=== PATIENT | female | born 1930 | race Caucasian/White ===

== ENCOUNTER 2017-01-29 09:36 | Emergency (ER) | payer MEDICARE ==
[2017-01-29 10:10] LABS: #Basophils 0.1 thou/uL (0.0-0.2); #Eosinphils 0.3 thou/uL (0.0-0.7); #Lymphocytes 2.7 thou/uL (1.20-3.40); #Monocytes 0.5 thou/uL (0.11-0.59); #Neutrophils 4.7 thou/uL (1.40-6.50); %Basophils 1.4 % (0.0-1.0); %Eosinophils 3.2 % (0.0-10.0); %Lymphocytes 32.5 % (21.0-51.0); %Monocytes 5.6 % (0.0-10.0); %Neutrophils 57.3 % (42.0-75.0); Hemoglobin 14.6 g/dL (12.0-16.0); Mean Corpuscular HGB CONC 32.9 g/dL (32.0-36.0); Mean Corpuscular Hemoglobin 29.5 pg (27.0-31.0); Mean Corpuscular Volume 89.6 fl (81.0-99.0); Mean Platelet Volume 7.5 fL (7.4-10.4); Platelet Count 245 thou/uL (130-400); RBC Distribution Width 13.1 % (11.5-14.5); Red Blood Cell (RBC) Count 4.94 mill/uL (4.20-5.40); White Blood Cell (WBC) Count 8.3 thou/uL (4.8-10.8)
[2017-01-29 10:17] LABS: Bilirubin Negative (Negative); Blood, Urine Negative (Negative); Clarity Clear (Clear); Glucose, Urine (Dipstick) Negative (Negative); Leukocyte Negative (Negative); Nitrite Negative (Negative); Protein, Urine (Dipstick) 100 mg/dL (Neg-Trace); Specific Gravity, Urine 1.015 (1.005-1.030); Urobilinogen 0.2 mg/dL (0.2-1.0)
[2017-01-29 10:25] LABS: ALT (SGPT) 15 U/L (8-55); AST (SGOT) 24 U/L (5-34); Albumin 3.9 g/dL (3.4-4.8); Alkaline Phosphatase 81 U/L (40-150); Anion Gap 14 mmol/L (10-20); BUN (Urea Nitrogen) 15 mg/dL (9.8-20.1); Bilirubin, Total 0.5 mg/dL (0.2-1.2); CK (CPK) 102 U/L (29-168); Calc. Creatinine Clearance 0 mL/min (70-130); Calcium 9.2 mg/dL (7.8-10.44); Carbon Dioxide 25 mmol/L (23-31); Chloride 109 mmol/L (98-107); Estimated GFR-MDRD 46; Globulin 3.2 g/dL (2.4-3.5); Glucose 124 mg/dL (83-110); Lipase 32 U/L (8-78); Potassium 4.5 mmol/L (3.5-5.1); Protein, Total 7.1 g/dL (6.0-8.3); Sodium 143 mmol/L (136-145)
[2017-01-29 10:27] LABS: CKMB 2.4 ng/mL (0-6.6); Troponin I Less than 0.010 ng/mL (< 0.028)
[2017-01-29 10:29] LABS: Bacteria/HPF Rare-Few HPF (None Seen); RBC/HPF None Seen HPF (0-3); Squamous Epithelial 0-3 HPF (0-3); WBC/HPF 0-3 HPF (0-3)
--- NOTE | 2017-01-29 16:57 | RAD ---
PORTABLE CHEST: Date: 01/29/17 An AP portable film at 1003 hours is compared with a 12/06/15 study from [facility]> Mild cardiomegaly is about the same as before. There are no congestive changes, pleural effusions, o r focal pulmonary infiltrates. The patient has a cardiac pacer in place as usual. Scoliosis is noted . IMPRESSION: Cardiomegaly, but no acute finding. POS: HOME
--- NOTE | 2017-01-29 17:00 | CT ---
CT OF THE BRAIN WITHOUT CONTRAST: Date: 01/29/17 Comparison is made with the prior study of 07/03/16. FINDINGS: There has been no adverse interval change. The ventricles are normal in size for age and atrophy. Mi ld patchy hypolucency in the deep white matter is consistent with chronic ischemic change. There wer e no findings strongly suggestive of acute stroke. No mass, edema, or hemorrhage seen. IMPRESSION: Atrophy and chronic ischemic changes, but no acute intracranial finding. POS: HOME
== END 2017-01-29 11:51 | disposition home or self-care (01) ==
LOC: BURERS 09:36
DX: E86.0 Dehydration (principal); R41.82 Altered mental status, unspecified; I10 Essential (primary) hypertension; E78.5 Hyperlipidemia, unspecified; F03.90 Unspecified dementia, unspecified severity, without behavioral disturbance, psychotic disturbance, mood disturbance, and anxiety; F32.9 Major depressive disorder, single episode, unspecified; Z79.899 Other long term (current) drug therapy; Z79.82 Long term (current) use of aspirin
CPT/HCPCS: 51701; 70450; 71010; 80053; 81003; 81015; 82553; 83690; 84443; 84484; 85025; 87086; 93005; 94760; 96360; A4353